=== PATIENT | female | born 1945 | race Caucasian/White ===

== ENCOUNTER 2017-12-02 06:03 | Inpatient (IN) | payer MEDICARE, BC ==
[~2017-12-02] VITALS: Ht 160 cm; Wt 59.9 kg
--- NOTE | ~2017-12-02 | PROC ---
[address] [address] PROCEDURE REPORT Name: ERA GARCIA Room: [address] IN .R.#: [id number] Admission: 12/02/17 Attend Phys: Janak Landeros Discharge: Date of : 43 Report #: [id number] THIS REPORT FOR: //name// For GI report, please see the Provation report in Peceptive 7 content. By: [facility] Records Staff BOO /PATRICK
[~2017-12-02 06:03] MED LIST: BENTYL 10 MG CA10 MG PO; CALCIUM 600 +1 EAC1 PO; EVISTA; GRALISE600 MG; LIDODERM 5%1 PATCH; ZESTORETIC 10-1 EACH PO
[2017-12-02 06:10] VITALS: BP 129/72
[2017-12-02] MEDS ORDERED: KEFLEX500 M1 PO (06:18)
[2017-12-02] MEDS ORDERED: FLEXERIL PO (06:19)
[2017-12-02] MEDS ORDERED: HYDROCODONE-AP1 EAC6 PO (06:19)
[2017-12-02] MEDS ORDERED: MOBIC7.5 MG PO (06:20)
[2017-12-02] MEDS ORDERED: FISH OIL 1,001000 M2 PO (06:20)
[2017-12-02] MEDS ORDERED: NEURONTIN600 MG PO (06:20)
[2017-12-02 07:11] LABS: ABSOLUTE EOSINOPHILS 0.1 thou/uL (0.0-0.7); ABSOLUTE LYMPHOCYTES 1.2 thou/uL (0.8-5.3); BASOPHILS 0.3 %; EOSINOPHILS 0.5 %; HEMATOCRIT 31.5 % (37.0-47.0); HEMOGLOBIN 10.7 gm/dL (12.0-15.0); MCH 30.8 pg (26.0-34.0); MCV 90.6 fL (80.0-100.0); MPV 6.8 fl. (7.2-11.1); NUCLEATED RBCS 0 /100WBC; PLATELET COUNT* 254 thou/uL (150-400); POLYS 77.2 %; RBC 3.48 mil/uL (4.20-5.00); RDW-CV 12.8 % (10.5-14.5); WBC 10.4 thou/uL (4.0-11.0)
[2017-12-02 07:29] LABS: URINE BILIRUBIN NEGATIVE (Negative); URINE BLOOD NEGATIVE (Negative); URINE CLARITY CLEAR; URINE COLOR YELLOW; URINE GLUCOSE-RANDOM NEGATIVE (Negative); URINE KETONES NEGATIVE (Negative); URINE LEUKOCYTES-REFLEX TRACE (Negative); URINE NITRITE-REFLEX NEGATIVE (Negative); URINE PROTEIN TRACE (Negative); URINE SPECIFIC GRAVITY 1.015 (1.005-1.030); URINE UROBILINOGEN 0.2 E.U./dl (0.2-1.0)
[2017-12-02 07:30] LABS: ANION GAP 10 mmol/L (7-16); BUN 28 mg/dL (7-18); CALCIUM 9.1 mg/dL (8.5-10.1); CHLORIDE 99 mmol/L (98-107); CO2 27 mmol/L (21-32); CREATININE 1.1 mg/dL (0.6-1.3); GLUCOSE 96 mg/dL (70-99); POTASSIUM 3.9 mmol/L (3.5-5.1); SODIUM 136 mmol/L (136-145)
[2017-12-02 07:32] LABS: APTT 32.9 Seconds (25.0-31.3); INR 1.1; PROTIME 10.9 Seconds (9.20-11.50)
[2017-12-02 07:37] LABS: ALKALINE PHOSPHATASE 89 U/L (46-116); LIPASE 107 U/L (73-393); SGOT 16 U/L (15-37); SGPT 13 U/L (30-65); TOTAL BILIRUBIN 0.4 mg/dL (<0.1-1.0); TROPONIN-I LEVEL <0.06 ng/mL (<0.06)
[2017-12-02 07:55] LABS: HYALINE CASTS >10 Many /LPF (None Seen); MUCUS 4-6 Moderate strn/LPF (None Seen); SQUAMOUS >10 Many /LPF (0-3)
[2017-12-02 07:56] LABS: BACTERIA-REFLEX 1-9 Few /HPF (None Seen); CRYSTALS None Seen /LPF (None Seen); URINE RBC 0-2 Rare /HPF (0-2); URINE WBC-REFLEX 0-5 Rare /HPF (0-5)
[2017-12-02 10:00] VITALS: BP 108/49
[2017-12-02 10:28] VITALS: BP 136/71
--- NOTE | 2017-12-02 12:14 | EKG ---
[place] [address] ELECTROCARDIOGRAM REPORT Name: ERA GARCIA Room: [address] ADM IN [facility].#: [id number] Admission: 12/02/17 Attend Phys: Janak Landeros Discharge: Date of : 43 Report #: [id number] THIS REPORT FOR: //name// [facility] ED Test Date: 2017-12-02 Test Time: 07:09:21 Pat Name: ERA GARCIA Department: Room: 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1945 Requested By: Milan Fox Order Number: [id number] MD: Mango Proctor Measurements Intervals [place] Rate: 96 P: 0 OR: 133 QRS: 52 QRSD: 84 T: 5 QT: 344 QTc: 435 Interpretive Statements Sinus rhythm Probable left atrial enlargement Borderline T abnormalities, inferior leads Baseline wander in lead(s) V1 No previous ECG available for comparison Electronically Signed On 12-02-2017 12:13:49 COACH by Mango Proctor [email or web address] <ELECTRONICALLY SIGNED> By: Mango Proctor MD, [facility] 12/02/17 1213 0709 0709 Mango Proctor MD, [facility] /EPI
[2017-12-02 15:49] VITALS: BP 133/71
--- NOTE | 2017-12-02 16:51 | NUR ---
ASSUMED CARE OF PATIENT AFTER ADMISSION FROM THE ED. ADMISSION ASSESSMENTS COMPLETED AND CHARTED. ALERT AND ORIENTED X4. FLUIDS RUNNING ORDERED, ANTIBIOTICS INFUSED PER ORDERS. NO COMPLAINTS OF PAIN OR NAUSEA. PATIENT IS RESTING COMFROTABLY IN BED AT THIS TIME. AWAITING CONSULT WITH GI FOR MORE INFORMATION ON TRATMENT PLAN. HOURLY ROUNDS HAVE BEEN MAINTAINED. CALL LIGHT IS WITHIN REACH. NURSING WILL CONTINUE TO MONITOR.
[2017-12-02 21:30] VITALS: BP 120/64
[2017-12-03 04:41] VITALS: BP 120/64
[2017-12-03 05:15] LABS: ABSOLUTE EOSINOPHILS 0.1 thou/uL (0.0-0.7); ABSOLUTE LYMPHOCYTES 1.3 thou/uL (0.8-5.3); ABSOLUTE MONOCYTES 0.8 thou/uL (0.0-1.2); ABSOLUTE NEUTROPHILS 5.2 thou/uL (1.6-8.1); BASOPHILS 0.3 %; EOSINOPHILS 1.5 %; HEMATOCRIT 29.8 % (37.0-47.0); HEMOGLOBIN 10.3 gm/dL (12.0-15.0); LYMPHOCYTES 16.9 %; MCH 31.2 pg (26.0-34.0); MCHC 34.5 g/dL (28.0-37.0); MCV 90.6 fL (80.0-100.0); MPV 7.5 fl. (7.2-11.1); NUCLEATED RBCS 0 /100WBC; PLATELET COUNT* 244 thou/uL (150-400); POLYS 70.3 %; RBC 3.29 mil/uL (4.20-5.00); RDW-CV 12.7 % (10.5-14.5); WBC 7.4 thou/uL (4.0-11.0)
[2017-12-03 05:26] LABS: CALCIUM 8.8 mg/dL (8.5-10.1); MAGNESIUM 2.4 mg/dL (1.8-2.4); PHOSPHORUS* 2.8 mg/dL (2.5-4.9); POTASSIUM 4.5 mmol/L (3.5-5.1)
--- NOTE | 2017-12-03 05:50 | NUR ---
ALERT AND ORIENTED X4. UP AD TREVOR IN ROOM. DENIES NEED FOR PAIN OR NAUSEA MEDICATION. NPO AT THIS TIME FOR COLONOSCOPY TODAY. IVF INFUSING WITHOUT DIFFICULTY. CALL LIGHT WITHIN REACH.
[2017-12-03 08:28] VITALS: BP 120/67
--- NOTE | 2017-12-03 11:51 | EKG ---
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1945 Requested By: Blas Vora Order Number: [id number] Reading MD: Mango Proctor Measurements Intervals [place] Rate: 89 P: 36 AR: 141 QRS: 49 QRSD: 92 T: 28 QT: 336 QTc: 409 Interpretive Statements Sinus rhythm Probable left atrial enlargement Low voltage, precordial leads Nonspecific T abnormalities, anterior leads Compared to ECG 12/02/2017 07:09:21 Low QRS voltage now present T-wave abnormality still present Electronically Signed On 12-03-2017 11:51:03 BATCH FREEZER OPERATOR by Mango Proctor [email or web address] <ELECTRONICALLY SIGNED> By: Mango Proctor MD, [facility] 12/03/17 1151 0830 0830 Mango Proctor MD, [facility] /EPI
[2017-12-03 16:17] VITALS: BP 120/62
--- NOTE | 2017-12-03 17:18 | NUR ---
ASSUMED CARE OF PATIENT AFTER MORNING REPORT. ALERT AND OREINTED X4. ASSESSMENT COMPLETED AND CHARTED. VSS ON ROOM AIR. NO COMPLAINTS OF PAIN OR NAUSEA. NO BOWEL MOVEMENTS DESPITE BOWEL PREP LAST NIGHT AND THIS MORNING. COLONOSCOPY DONE AND CLEAR LIQUID DIET HAS BEEN ODERED. MAGNESIUM CITRATE AND DULCOLAX ORDERED TO BE GIVEN THIS AFTERNOON AND EVENING. HOURLY ROUNDS HAVE BEEN MAINTAINED. CALL LIHT IS WITHIN REACH. NURSING WILL CONTINUE TO MONITOR.
[2017-12-03 21:00] VITALS: BP 112/73
[2017-12-04 04:00] VITALS: BP 124/66
[2017-12-04 04:39] LABS: ABSOLUTE EOSINOPHILS 0.1 thou/uL (0.0-0.7); ABSOLUTE LYMPHOCYTES 1.2 thou/uL (0.8-5.3); ABSOLUTE MONOCYTES 0.7 thou/uL (0.0-1.2); ABSOLUTE NEUTROPHILS 5.3 thou/uL (1.6-8.1); BASOPHILS 0.5 %; EOSINOPHILS 1.1 %; HEMATOCRIT 29.4 % (37.0-47.0); HEMOGLOBIN 10.2 gm/dL (12.0-15.0); LYMPHOCYTES 16.9 %; MCH 31.1 pg (26.0-34.0); MCHC 34.7 g/dL (28.0-37.0); MCV 89.5 fL (80.0-100.0); MONOCYTES 9.3 %; MPV 7.4 fl. (7.2-11.1); NUCLEATED RBCS 0 /100WBC; PLATELET COUNT* 270 thou/uL (150-400); POLYS 72.2 %; RBC 3.29 mil/uL (4.20-5.00); RDW-CV 12.6 % (10.5-14.5); WBC 7.3 thou/uL (4.0-11.0)
[2017-12-04 05:17] LABS: CALCIUM 8.6 mg/dL (8.5-10.1); CREATININE 0.9 mg/dL (0.6-1.3); POTASSIUM 3.2 mmol/L (3.5-5.1)
--- NOTE | 2017-12-04 07:01 | NUR ---
UP AD TREVOR TO BATHROOM. ALERT AND ORIENTED X4. REMAINS ON CLEAR LIQUID DIET. NO BOWEL MOVENENT NOTED LAST NIGHT. IVF INFUSING WITHOUT DIFFICULTY. NO C/O N/V. PAIN MEDICATION GIVEN X1 AND HELPFUL. CALL LIGHT WITHIN REACH.
[2017-12-04 08:00] VITALS: BP 127/69
[2017-12-04] MEDS ORDERED: CIPRO500 MG PO (11:16)
[2017-12-04] MEDS ORDERED: FLAGYL500 MG PO (11:16)
[2017-12-04 16:00] VITALS: BP 125/70
--- NOTE | 2017-12-04 17:02 | NUR ---
ALERT AND ORIENTED X4. UP AD TREVOR IN ROOM. IV IS PATENT AND INFUSING. PAIN BEING MANAGED WITH PO PAIN MEDICATION. DENIES NAUSEA. TOLERATING CLEAR LIQUID DIET. VSS ON ROOM AIR. HOURLY ROUNDS HAVE BEEN MAINTAINED THROUGHOUT SHIFT. CALL LIGHT IS WITHIN REACH. NURSING WILL CONTINUE TO MONITOR.
--- NOTE | 2017-12-04 17:32 | NUR ---
PT.ALERT AND ORIENTED. STATED SHE LIVES WITH HER . HE CAN ASSIST HER IF NEEDED. SHE SAID SHE IS NORMALLY INDEPENDENT AND FAIRLY ACTIVE. SHE DRIVES,COOKS,SHOPS,CLEANS. DOES NOT USE DME AND HAS NEVER HAD HOME HEALTH. SHE DOES NOT FEEL SHE WILL HAVE ANY DISCHARGE NEEDS.
[2017-12-04 20:00] VITALS: BP 135/75
--- NOTE | 2017-12-05 07:59 | NUR ---
PT ALERT AND ORIENTED X4, PT DOES COMPLAIN OF ABD PAIN CONTROLLED WITH PO PAIN MED, PT DENIES N/V THIS SHIFT, PT DOES HAVE MOD AMOUNT SIZED LIQUID STOOL THIS MORNING, CONTINUES UP AD TREVOR, IV FLUIDS INFUSING, REPORTED TO DAMEON CASTILLO AT 0700
[2017-12-05 08:15] VITALS: BP 112/68
[2017-12-05 10:19] LABS: ABSOLUTE BASOPHILS 0.1 thou/uL (0.0-0.2); ABSOLUTE EOSINOPHILS 0.1 thou/uL (0.0-0.7); ABSOLUTE LYMPHOCYTES 1.6 thou/uL (0.8-5.3); ABSOLUTE MONOCYTES 0.8 thou/uL (0.0-1.2); ABSOLUTE NEUTROPHILS 7.9 thou/uL (1.6-8.1); BASOPHILS 0.6 %; EOSINOPHILS 1.3 %; HEMATOCRIT 31.3 % (37.0-47.0); HEMOGLOBIN 10.5 gm/dL (12.0-15.0); LYMPHOCYTES 15.4 %; MCH 30.6 pg (26.0-34.0); MCHC 33.7 g/dL (28.0-37.0); MCV 90.8 fL (80.0-100.0); MONOCYTES 7.6 %; MPV 6.8 fl. (7.2-11.1); NUCLEATED RBCS 0 /100WBC; PLATELET COUNT* 296 thou/uL (150-400); POLYS 75.1 %; RBC 3.44 mil/uL (4.20-5.00); RDW-CV 12.6 % (10.5-14.5); WBC 10.5 thou/uL (4.0-11.0)
[2017-12-05 10:50] LABS: ALBUMIN 2.8 g/dL (3.4-5.0); CALCIUM 8.6 mg/dL (8.5-10.1); MAGNESIUM 2.3 mg/dL (1.8-2.4); POTASSIUM 3.1 mmol/L (3.5-5.1); TOTAL BILIRUBIN 0.3 mg/dL (<0.1-1.0); TOTAL PROTEIN 7.5 g/dL (6.4-8.2)
--- NOTE | 2017-12-05 16:22 | S ---
[place] [address] SURGICAL PATH RPT PROCEDURE Name: JOSEGIRARD Doug Room: [address] IN M.R.#: [id number] Admission: 12/02/17 Date of : 43 Discharge: Report #: [id number] Path Case #: [id number] PATHOLOGY REPORT COLLECTION DATE: 12/03/2017 RECEIVED DATE: 12/04/2017 SUBMITTING PHYS: Dr. Blas Vora OTHER PHYS: Dr. Darren Sherwood SPECIMEN(S) RECEIVED: A.Biopsy splenic flexure ulceration * * * * * * * * * * * * FINAL DIAGNOSIS: Biopsy splenic flexure ulceration: - Chronic active colitis with evidence of ulceration, negative for granulomas, viral inclusions, and dysplasia. (see comment) COMMENT: The biopsy reveals multiple fragments of benign colonic mucosa and several show evidence of active inflammation with abundant neutrophils noted in the lamina propria but with fairly minimal cryptitis and no crypt abscesses. There is noted to be an abundance of eosinophils in the inflammatory component, and one of the fragments shows crypt distortion where several basal lymphoid aggregates are noted. There is no definite basal lymphoplasmacytosis and no definite ischemic features are seen. The clinical suspicion of ischemic colitis is noted upon discussion with Dr. Vora on afternoon of 12/05/2017 and although this cannot be excluded, the histologic findings also raise a question of Crohn's disease which is favored. Discussed with Dr. Sherwood at approximately 15:15 on 12/05/2017. (JA:mgr; 12/05/2017) PATHOLOGIST: Ketan Bonilla M.D. REPORT ELECTRONICALLY SIGNED BY: Ketan Bonilla M.D. DATE/TIME: 12/05/2017 16:22 * * * * * * * * * * * * GROSS PATHOLOGY: The specimen is received in formalin, labeled "Andrew Buck, JACKLYN splenic flexure ulceration," and consists of 2 mucosal biopsies measuring 0.5 x 0.3 x 0.1 cm and 0.4 x 0.2 x 0.1 cm. They are entirely submitted in cassette A1. (SDY; 12/04/2017) [place] [address] SURGICAL PATH RPT PROCEDURE Name: ANDREW BUCK Room: [address] IN R.#: [id number] Admission: 12/02/17 Date of : 43 Discharge: Report #: [id number] Path Case #: [id number] CLINICAL HISTORY: Splenic flexure ulceration INITIAL CPT CODE(S): A; 63123 Professional services performed by [facility] at [address] [address] Technical services performed by [facility] at [address] [place] [address], [facility] [address], [place] [address]. [facility] [address] [place] [address] PHONE: [phone] DIRECTOR: Junior Machado M.D. * * * END OF REPORT * * *
[2017-12-05 17:09] VITALS: BP 115/86
--- NOTE | 2017-12-05 17:10 | NUR ---
ALERT AND ORIENTED X4. UP AD TREVOR IN ROOM. IV IS PATENT AND SALINE LOCKED. CENTRAL LINE WAS INSERTED TODAY AND IS PATENT AND INFUSING. DENIES PAIN OR NAUSEA. VSS ON ROOM AIR. HOURLY ROUNDS HAVE BEEN MAINTAINED THROUGHOUT SHIFT. CALL LIGHT IS WITHIN REACH. NURSING WILL CONTINUE TO MONITOR.
[2017-12-06 01:21] VITALS: BP 109/54
[2017-12-06 02:13] VITALS: BP 120/64
[2017-12-06 05:00] VITALS: BP 120/61
[2017-12-06 06:31] LABS: ALBUMIN 2.3 g/dL (3.4-5.0); CALCIUM 8.5 mg/dL (8.5-10.1); CREATININE 0.8 mg/dL (0.6-1.3); PHOSPHORUS* 2.7 mg/dL (2.5-4.9); POTASSIUM 3.9 mmol/L (3.5-5.1); TOTAL BILIRUBIN 0.2 mg/dL (<0.1-1.0); TOTAL PROTEIN 6.2 g/dL (6.4-8.2)
--- NOTE | 2017-12-06 08:24 | NUR ---
PATIENT HAS SLEPT WELL THROUGHOUT THE NIGHT WITHOUT ANY ISSUES. NO C/O PAIN AND NO C/O OF NAUSEA. PATIENT HAS REMAINED NPO SINCE MIDNIGHT. VSS ON RA. CENTRAL LINE TO LEFT SUBCLAVIAN-TRIPLE LUMEN- D5 1/2 NS @ 80ML/HR AND TPN @ 40ML/HR. IV IN RIGHT FOREARM-SL. NO BM NOTED. SURGERY HERE THIS AM TO TAKE PATIENT FOR PROCEDURE. WILL CONTINUE WITH PLAN OF CARE AND NURSING TO MONITOR.
--- NOTE | 2017-12-06 08:48 | NUR ---
RECEIVED REPORT FROM TERRY RN. PATIENT CURRENTLY IN SURGERY.
[2017-12-06 13:15] VITALS: BP 119/63
--- NOTE | 2017-12-06 13:15 | NUR ---
PATIENT RETURNED FROM PACU AT THIS TIME S/P EXP LAPAROTOMY, COLON RESECTION, AND COLOSTOMY. ASSESSMENT CHARTED. PATIENT STATING PAIN IS IMPROVED AFTER HAVING TAP BLOCK IN PACU. TPN CURRENTLY INFUSING TO TRIPLE LUMEN CENTRAL LINE. IV FLUIDS RESUMED. ROLLINS PATENT. ABDOMINAL DRESSING CLEAN, DRY AND INTACT. COLOSTOMY IN PLACE TO LEFT SIDE OF ABDOMEN. PATIENT'S VITALS CHARTED. PATIENT'S SCDS IN PLACE. PATIENT'S FAMILY AT BEDSIDE. WILL CONTINUE WITH PLAN OF CARE.
[2017-12-06 16:46] VITALS: BP 127/68
--- NOTE | 2017-12-06 18:42 | NUR ---
PATIENT HAS BEEN A/O X 4 SINCE RETURNING FROM SURGERY. TPN AND IV FLUIDS CONTINUE TO INFUSE. DRESSING TO ABDOMEN CLEAN, DRY AND INTACT. COLOSTOMY INTACT TO LEFT SIDE OF ABDOMEN. ROLLINS PATENT AND DRAINING. REPOSITIONED FOR COMFORT AND SKIN PREVENTION. ON CONTINOUS PULSE OX WITH SATS IN THE 90s. MEDICATED FOR ABDOMINAL PAIN X 1 WITH PARTIAL RELIEF. CALL PLACED TO PHYSICIAN REGARDING PAIN MEDS. AT BEDSIDE. CALL LIGHT WITHIN REACH. FALL PRECAUTIONS IN PLACE. WILL CONTINUE WITH PLAN OF CARE.
[2017-12-06 20:45] VITALS: BP 107/50
[2017-12-07 00:51] VITALS: BP 120/68
[2017-12-07 04:35] VITALS: BP 118/43
--- NOTE | 2017-12-07 06:59 | NUR ---
PATIENT HAS SLEPT FAIRLY WELL THROUGHOUT THE NIGHT BUT HAS HAD C/O OF ABDOMINAL PAIN FROM SURGERY. PAIN MEDICATIONS GIVEN AND CHARTED. NO NAUSEA OR VOMITING. ROLLINS TO DEPENDENT DRAINAGE WITH YELLOW URINE OUTPUT. VSS ON RA, ALTHOUGH PULSE IS SLIGHTLY TACHYCARDIC. LEFT TRIPLE LUMEN CENTRAL LINE- D5 1/2 NS @ 80ML/HR AND TPN @ 80ML/HR. LABS DRAWN THIS AM VIA CENTRAL LINE. DRESSING TO ABDOMINAL INCISION IS C/D/I, AND STOMA IS RED AND LOOKS APPROPRIATE. COLOSTOMY BAG IN PLACE. NO STOOL NOTED AT THIS TIME. PATIENT INSTRUCTED TO USE CALL LIGHT WHEN NEEDING ASSISTANCE. HOURLY ROUNDS MADE. WILL CONTINUE WITH PLAN OF CARE AND NURSING TO MONITOR.
[2017-12-07 07:02] LABS: CALCIUM 8.1 mg/dL (8.5-10.1); MAGNESIUM 2.1 mg/dL (1.8-2.4); PHOSPHORUS* 3.3 mg/dL (2.5-4.9)
[2017-12-07 08:15] VITALS: BP 111/56
[2017-12-07 16:02] VITALS: BP 115/65
--- NOTE | 2017-12-07 19:46 | NUR ---
ALERT AND ORIENTED X4. UP WITH ASSISTANCE X1 WITH GAIT BELT. PAIN BEING MANAGED WITH PO PAIN MEDICATION. DENIES NAUSEA. CENTRAL LINE IS PATENT AND INFUSING TPN AT THIS TIME. TOLERATING FULL LIQUID DIET. ATTENDED OT/PT THIS AM. VSS ON ROOM AIR. HOURLY ROUNDS HAVE BEEN MAINTAINED THROUGHOUT SHIFT. CALL LIGHT IS WITHIN REACH. NURSING WILL CONTINUE TO MONITOR.
[2017-12-07 20:10] VITALS: BP 110/56
[2017-12-08] VITALS: BP 96/45
--- NOTE | 2017-12-08 00:20 | NUR ---
Ambulated to the bathroom for first void post cook removal. Missed collection hat but was able to urinate. Continue to monitor.
[2017-12-08 04:00] VITALS: BP 97/47
--- NOTE | 2017-12-08 04:57 | NUR ---
PATIENT HAS REMAINED ALERT AND ORIENTED X 4 THROUGHOUT THE SHIFT AND RESTING QUIETLY ON HOURLY ROUNDS. ASSISTED WITH REPOSTIONING Q2H. UP TO BR TO VOID MIDNIGHT. MIN/CGA FOR AMBULATION SAFETY. DRESSING TO ABDOMEN CLEAN AND DRY. COLOSTOMY PRESENT LLQ WITH SMALL AMOUNT RED DRAINAGE. MILD NAUSEA HS. RESOLVED WITH REPOSITIONING AND ZOFRAN. NO EMESIS. VITAL SIGNS STABLE WITH LOW GRADE FEVER. DEEP BREATHING AND COUGH Q2H ENCOURAGED. MEDICATED FOR PAIN TIMES ONE AT SHIFT CHANGE. CONTINUE TO MONITOR.
[2017-12-08 06:48] LABS: HEMATOCRIT 22.5 % (37.0-47.0); MCH 31.1 pg (26.0-34.0); MCHC 33.8 g/dL (28.0-37.0); MCV 92.1 fL (80.0-100.0); MPV 7.1 fl. (7.2-11.1); RBC 2.44 mil/uL (4.20-5.00); RDW-CV 12.9 % (10.5-14.5); WBC 10.7 thou/uL (4.0-11.0)
[2017-12-08 06:49] LABS: HEMOGLOBIN 7.6 gm/dL (12.0-15.0)
[2017-12-08 07:04] LABS: CREATININE 0.9 mg/dL (0.6-1.3); MAGNESIUM 1.9 mg/dL (1.8-2.4); POTASSIUM 4.8 mmol/L (3.5-5.1)
[2017-12-08 08:03] VITALS: BP 105/54
[2017-12-08 15:08] VITALS: BP 105/54
--- NOTE | 2017-12-08 15:10 | NUR ---
PT.UP IN CHAIR. SAID SHE FEELS PRETTY GOOD SINCE HER SURGERY. HAS BEEN WALKING IN THE HALLS WITH THERAPY. EXPLAINED MARCI AYALA RN WILL BE COMING TO SEE HER REGARDING COLOSTOMY TEACHING. DISCUSSED HOME HEALTH. SHE CHOSE [facility] HER HOME HEALTH AGENCY. SPOKE WITH [facility] AND FAXED HER REFERRAL INFORMATION. DISCHARGE DATE UNKNOWN. FINAL DISCHARGE ORDERS WILL NEED TO BE FAXED TO THE MEDICAL [facility]ENTERS AND THE [facility]ENT[facility] NOTIFIED OF DISCHARGE. THE [facility]-PHONE #[phone]/ [phone].
--- NOTE | 2017-12-08 15:59 | NUR ---
WOUND CARE NOTE: SPOKE WITH CORE OVEN TENDER THIS AM, PLANS TO BE HERE THIS AFTERNOON.
[2017-12-08 16:00] VITALS: BP 134/60
--- NOTE | 2017-12-08 17:14 | NUR ---
OSTOMY NURSE- PATIENT IS 2 DAYS POST-OP FOLLOWING EXPLORATORY LAPAROTOMY WITH LEFT HEMICOLECTOMY, TAKEDOWN SPLENIC FLEXURE, COLOSTOMY & MUCOUS FISTULA PER DR WIN ON 12/06/17 FOR COLONIC OBSTRUCTION AT LEVEL OF SPLENIC FLEXURE. DR WIN IN TO SEE PATIENT JUST AFTER NEW POUCH APPLIED, ADVISED PATIENT AND HER AND SISTER, LAURO, AT BEDSIDE THAT THE PATHOLOGY WAS CONSISTENT WITH CROHN'S DISEASE, SO SHE WILL NEED TO F/U WITH DR BLANK REGARDING TREATING CROHN'S, AND TAKEDOWN WILL BE DEFERRED TO CROHN'S BEING CONTROLLED. ABDOMEN NON-DISTENDED AND SOFT. PATIENT TOLERATING SOFT DIET WELL, BUT MINIMAL APPETITE. SMALL MIDLINE ABDOMINAL INCISION WELL APPROXIMATED WITH RYAN, NO ERYTHEMA OR DRAINAGE. COLOSTOMY STOMA/MUCOUS FISTULA AT SAME SITE ON LEFT ABDOMEN, WITH STOMAS APPROXIMATELY 1 3/4 INCHES, BOTH PROTRUDE WELL, BEEFY RED & MOIST. MUCOCUTANEOUS INCISION WELL APPROXIMATED, PERISTOMAL SKIN INTACT. DRAINING SMALL AMOUNTS OF LOOSE BROWN STOOL. INSTRUCTED PATIENT, AND SISTER (NURSE) ON POUCH EMPTYING & POUCH CHANGE. BRIEFLY REVIEWED DIETARY IMPLICATIONS. ENROLLED IN [place] PROGRAM, HAS COLOSTOMY TEACHING PACKET AND WILL HAVE HOME HEALTH AT DISCHARGE. SHE ALSO HAS INITIAL HOME SUPPLIES. ANTICIPATE DISCHARGE IN NEXT COUPLE OF DAYS.
--- NOTE | 2017-12-08 17:30 | NUR ---
ASSUMED CARE OF PATIENT AFTER REPORT THIS MORNING. PATIENT AWAKE, ALERT, AND ORIENTED APPROPRIATELY. PHYSICAL ASSESSMENT COMPLETED AND CHARTED. NO COMPLAINTS OF PAIN THIS SHIFT. GIVEN SCHEDULED MEDICATIONS, SEE EMAR FOR DOCUMENTATION. VITAL SIGNS STABLE. OXYGEN SATURATION WITHIN NORMAL LIMITS ON ROOM AIR. PATIENT TRANSFERS AND AMBULATES WITH ASSISTANCE FROM STAFF. USES CALL LIGHT APPROPRIATELY. OSTOMY NURSE VISITED WITH PATIENT THIS AFTERNOON REGARDING COLOSTOMY. PATIENT DENIES NEEDS AT THIS TIME. CALL LIGHT WITHIN REACH. NURSING WILL CONTINUE TO MONITOR.
--- NOTE | 2017-12-08 17:35 | EKG ---
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1945 Requested By: Dong Damon Order Number: [id number] Eugenio MD: Kevin Love Measurements Intervals [place] Rate: 103 P: 37 ND: 125 QRS: 47 QRSD: 90 T: 32 QT: 301 QTc: 394 Interpretive Statements Sinus tachycardia Low voltage, precordial leads Nonspecific T abnormalities, anterior leads Compared to ECG 12/03/2017 08:30:50 Sinus rhythm no longer present T-wave abnormality still present Electronically Signed On 12-08-2017 17:35:21 WOODWORKING BENCH CARPENTER by Kevin Love [email or web address] <ELECTRONICALLY SIGNED> By: Keivn Love MD, [facility] 12/08/17 1735 1613 1613 Kevin Love MD, [facility] /EPI
[2017-12-08 20:00] VITALS: BP 107/53
[2017-12-09 02:47] VITALS: BP 92/50
[2017-12-09 03:51] VITALS: BP 110/60
--- NOTE | 2017-12-09 05:01 | NUR ---
PATIENT RESTING QUIETLY THIS AM ON HOURLY ROUNDS. VITALS STABLE ON ROOM AIR. DENIED NEED FOR PAIN MEDICATION. DRESSING TO ABDOMEN CLEAN, DRY AND INTACT. COLOSTOMY IN PLACE, NO OUTPUT THIS SHIFT. CONTINUE TO MONITOR.
[2017-12-09 07:28] LABS: HEMATOCRIT 22.1 % (37.0-47.0); HEMOGLOBIN 7.4 gm/dL (12.0-15.0); MCH 30.6 pg (26.0-34.0); MCHC 33.3 g/dL (28.0-37.0); MCV 91.8 fL (80.0-100.0); MPV 7.1 fl. (7.2-11.1); RBC 2.41 mil/uL (4.20-5.00); RDW-CV 12.8 % (10.5-14.5); WBC 7.4 thou/uL (4.0-11.0)
[2017-12-09 07:30] VITALS: BP 113/54
[2017-12-09 07:43] LABS: ALBUMIN 1.9 g/dL (3.4-5.0); CALCIUM 8.4 mg/dL (8.5-10.1); MAGNESIUM 1.8 mg/dL (1.8-2.4); POTASSIUM 4.6 mmol/L (3.5-5.1); TOTAL BILIRUBIN 0.2 mg/dL (<0.1-1.0); TOTAL PROTEIN 5.6 g/dL (6.4-8.2)
--- NOTE | 2017-12-09 12:05 | NUR ---
Initial referral packet on the front of Pt's chart to [place] [facility] [place] orders for [place] will need to be included in the referral packet prior to faxing it to [facility]. f:[phone]
[2017-12-09 16:00] VITALS: BP 113/54
--- NOTE | 2017-12-09 18:46 | NUR ---
PATIENT REMAINED ALERT AND ORIENTED X'S 4. VITAL SIGNS AND SPO2 STABLE. IV CLEAN, DRY, INTACT, FLUSHING SALINE. TOLERATED DIET, NO NAUSEA AND VOMITING. VOIDED WITHOUT ISSUE, COLOSTOMY IN PLACE. SCD'S, YELLOW SOCKS IN PLACE. COMPLETED HOURLY ROUNDING. CALL LIGHT WITHIN REACH. WILL CONTINUE TO MONITOR.
[2017-12-09 20:30] VITALS: BP 122/60
[2017-12-10 00:41] VITALS: BP 112/61
[2017-12-10 04:43] LABS: HEMATOCRIT 23.9 % (37.0-47.0); HEMOGLOBIN 8.3 gm/dL (12.0-15.0); MCH 31.3 pg (26.0-34.0); MCHC 34.6 g/dL (28.0-37.0); MCV 90.5 fL (80.0-100.0); RBC 2.64 mil/uL (4.20-5.00); RDW-CV 12.4 % (10.5-14.5); WBC 6.8 thou/uL (4.0-11.0)
[2017-12-10 05:10] LABS: CREATININE 0.9 mg/dL (0.6-1.3); POTASSIUM 4.4 mmol/L (3.5-5.1)
[2017-12-10 08:05] VITALS: BP 114/60
--- NOTE | 2017-12-10 08:22 | NUR ---
Alert and oriented x 4. Up with stand by assist to the bathroom. Midline incision dry and intact with ABD dressing. Colostomy to LLQ and hasn't had very much output. Vitals stable. She has slept well.
[2017-12-10 16:00] VITALS: BP 119/63
--- NOTE | 2017-12-10 17:04 | NUR ---
ASSUMED CARTE OF PATIENT AFTER MONRING REPORT. ALERT AND OREINTED X4. ASSESSMENT COMPLETED AND CHARTED. VSS ON ROOM AIR. PATIENT HAS HAD NO COMPLANTS OF PAIN OR NAUSEA THIS SHIFT. PATIENT WALKED THE UNTI WITH HER A FEW TIMES THROUGHOUT SHIFT. RESTING COMFORTABLY IN BED AT THIS TIME. HOURLY ROUNDS HAVE BEEN MAINTAINED. CALL LIGHT IS WITHIN REACH. NURSING WILL CONTINUE TO MONITOR.
[2017-12-10 21:00] VITALS: BP 123/59
--- NOTE | 2017-12-11 05:25 | NUR ---
Alert and oriented x 4. Colostomy is working well,she has good bowel sounds. She has no nausea. Dressing to midline abdominal incision dry and intact. She had pain med x 1. Vitals are stable. Up independently to the bathroom. She has slept well.
[2017-12-11 05:30] LABS: HEMATOCRIT 25.4 % (37.0-47.0); HEMOGLOBIN 8.6 gm/dL (12.0-15.0); MCH 30.8 pg (26.0-34.0); MCHC 33.8 g/dL (28.0-37.0); MPV 6.7 fl. (7.2-11.1); RBC 2.79 mil/uL (4.20-5.00); RDW-CV 12.4 % (10.5-14.5); WBC 7.6 thou/uL (4.0-11.0)
[2017-12-11 06:02] LABS: CALCIUM 9.1 mg/dL (8.5-10.1); MAGNESIUM 1.9 mg/dL (1.8-2.4); POTASSIUM 4.4 mmol/L (3.5-5.1)
[2017-12-11 08:00] VITALS: BP 124/69
--- NOTE | 2017-12-11 11:26 | NUR ---
[facility]DISCHARGING HOME TODAY. FAXED DISCHARGE ORDERS TO HER. SHE SAID THEY WOULD PROVIDE ADDITIONAL OSTOMY SUPPLIES IF HER MAIL ORDER DOESN'T ARRIVE BEFORE SHE NEEDS THEM. HOME HEALTH WILL SEE PT.TOMORROW.
--- NOTE | 2017-12-11 12:12 | NUR ---
PT RETURNED DEMONSTRATION OF EMPTYING COLOSTOMY. PT STATES SHE IS COMFORTABLE WITH CHANGING BAG. PT HAS COLOSTOMY SUPPLIES IN ROOM AND RESOURCES FOR CARE AND HOW TO ORDER MORE SUPPLIES
[2017-12-11] MEDS ORDERED: TYLENOL325 MG PO (12:51)
[2017-12-11 12:52] VITALS: BP 105/54
[2017-12-11 13:04] VITALS: BP 105/54
[2017-12-11] MEDS ORDERED: MIRALAX17 GM PO (13:06)
--- NOTE | 2017-12-12 14:31 | S ---
[place] [address] SURGICAL PATH RPT PROCEDURE Name: JOSEGIRARD F Room: [address] IN .R.#: [id number] Admission: 12/02/17 Date of : 43 Discharge: 12/11/17 Report #: [id number] Path Case #: [id number] PATHOLOGY REPORT COLLECTION DATE: 12/06/2017 RECEIVED DATE: 12/06/2017 SUBMITTING PHYS: Dr. Yan Sherwood OTHER PHYS: Dr. Darren Vora SPECIMEN(S) RECEIVED: A.Splenic flexure suture at distal end * * * * * * * * * * * * FINAL DIAGNOSIS: Splenic flexure: - Segment of benign colon with features most consistent with active Crohn's disease including discontinuous active colitis associated with serpiginous ulcerations, transmural inflammation and perforation with foreign body-type granulomatous response, fistula formation and fibrosis and subtle chronic colitis, negative for granulomas and dysplasia. - Five benign lymph nodes with follicular hyperplasia. See comment. COMMENT: The grossly described "nodular indurated region within the antimesenteric pericolic fatty tissue", also sampled intraoperatively, shows prominent fibrosis and inflammation in association with a fistula. The constellation of findings is thought to best support active Crohn's disease although chronic inflammatory changes, outside of the region of the serpiginous ulcerations are fairly subtle and there is also noted to be an abundance of eosinophils in the inflammatory infiltrate as well as extensive pericolic fibrosis. Consideration should also be given to the possibility of non-steroidal anti-inflammatory use as a possible primary etiology or even as an initiating flare of Crohn's disease. Sections of the proximal and distal surgical margins show normal colonic tissues. Discussed with Dr. Sherwood on afternoon of 12/11/2017. PATHOLOGIST: Ketan Bonilla M.D. REPORT ELECTRONICALLY SIGNED BY: Ketan Bonilla M.D. DATE/TIME: 12/12/2017 14:30 * * * * * * * * * * * * GROSS PATHOLOGY: [place] [address] SURGICAL PATH RPT PROCEDURE Name: ANDREW GARCIA Room: [address] IN M.R.#: [id number] Admission: 12/02/17 Date of : 43 Discharge: 12/11/17 Report #: [id number] Path Case #: [id number] Received fresh from the operating room accompanied by a label marked "Andrew Garcia, splenic flexure-suture at distal end", is a segment of colon. Dr. Sherwood demonstrates this to be the splenic flexure of colon where the mid portion of it, which is very indurated and has a vague, firm nodularity for a span of approximately 4 x 2 cm, is adjacent to the spleen. He demonstrates the spleen to have a very smooth, homogenous white-orr color within the patient. There is a clinical concern for Crohn's disease based on the prior biopsy, however, the induration and nodularity as well as intraoperative findings of the spleen raise a question of a hematopoietic disorder and intraoperative evaluation of, specifically the nodular indurated focus, is requested. The segment measures 26 cm long and generally averages 4 x 2 cm in girth and the central portion, where the nodularity of interest is found, has a girth of 6.5 x 2.5 cm. Mesenteric fat, which appears normal, generally averages 3 cm in length and up to 1 cm in thickness. A black suture is at one end designated as distal and there is no evidence of dilatation of the bowel. The nodular indurated area is not in the mesenteric tissue, but in antimesenteric pericolic fatty tissues and green ink is placed over this region and a cut is made into it where it is noted to have a homogenous firm orr interior and a loan servicing representative section of this region is submitted for frozen studies, with the remainder of that tissue frozen submitted in cassette A1. The bowel is longitudinally opened along the antimesenteric aspect and at both the proximal and distal ends there is normal appearing bowel, however, the central portion of the mucosa has an irregular inflamed to focally serpiginous ulcerated appearance and it has a flattened and inflamed appearance to an area approximately 3 cm away from the distal margin. There is evidence of submucosal black pigment tattooing proximal to the inflamed area. The proximal approximate 8-10 cm length of bowel appears normal. The surgical margin at both ends is closed with linear arrangements of brandon. The segment of bowel is demonstrated to Dr. Sherwood in the operating room and it is then submitted for fixation prior to further examination. (JA:curly; 12/06/2017) The "nodular indurated region within the antimesenteric pericolic fatty tissue" is further sectioned. There appears to be a probable ruptured diverticulum vs. a fistula identified that measures 0.9 cm in length by 0.3 cm in diameter. The surrounding muscularis propria is fibrotic. There are no additional diverticula identified. Sectioning the mesocolon reveals a few lymph node candidates ranging in size from 0.2 cm-0.6 cm in greatest dimension. Edge Stainer lymph node candidates are submitted. Additional loan servicing representative sections of the colonic segment are submitted as follows: A2 distal margin A3 proximal margin A4-A6 sections of "nodular indurated region within the anti-mesenteric pericolic fatty tissue" A7 [place] [address] SURGICAL PATH RPT PROCEDURE Name: ANDREW GARCIA Room: [address]#: [id number] Admission: 12/02/17 Date of : 43 Discharge: 12/11/17 Report #: [id number] Path Case #: [id number] A8 transmural section proximal end A9 whole lymph node candidates (MYRA; 12/07/2017) Additional sections are submitted as follows: A10-A11 transmural sections distal end A12-A13 transmural sections proximal end (MYRA; 12/08/2017) FROZEN SECTION DIAGNOSIS: (Ketan Bonilla M.D.) Frozen diagnosis (splenic flexure): - Pericolic induration/nodule (designated by Dr. Sherwood) shows inflamed fibrotic tissues negative for malignancy. Opened colon segment shows segmental mucosal inflammation typical of Crohn's disease. Testing performed by [facility] at [facility], [address] [place] [address]. (JA:curly; 12/06/2017) CLINICAL HISTORY: Colonic obstruction INITIAL CPT CODE(S): A; 99437, 94170 Professional services performed by [employer] at [facility], [address] [place] [address] [place] [address]. Technical services performed by [employer] at [address] [place] [address], [address], [place] [address]. [facility] [address] [place] [address] PHONE: [phone] DIRECTOR: Junior Machado M.D. * * * END OF REPORT * * *
--- NOTE | 2017-12-25 17:57 | CON ---
[address] [address] CONSULTATION Name: ERA GARCIA Room: [address]#: [id number] Admission: 12/02/17 Attend Phys: Janak Landeros Discharge: 12/11/17 Date of : 43 Report #: [id number] THIS REPORT FOR: //name// CC: Yan Banda DO DATE OF SERVICE: 12/02/2017 REFERRING PHYSICIAN: Darren Banda MD REASON FOR CONSULTATION: Abdominal pain and bowel obstruction. IMPRESSION: 1. Large bowel obstruction noted at the level of the proximal descending colon -- suspect underlying colon cancer, but cannot rule out other causes. 2. Personal history of colon polyps with her last examination being done over 10 years ago. 3. Left upper quadrant pain with worsening constipation and weight loss secondary to #1. 4. Mild anemia. RECOMMENDATIONS: 1. We will attempt a gentle bowel preparation with Dulcolax today and tomorrow and then some soapsuds enemas thereafter. I am afraid to give her too much volume at this time with the bowel prep as I am not convinced that she will be able to empty her colon from the same. 2. We will proceed with colonoscopy under general endotracheal anesthesia and fluoroscopy as it is highly likely that I would want to place a colonic stent if I notice that there is a colonic stricture. This will allow her to have a 1-stage operation after being prepped instead of having a temporary colostomy. Once I place the stent, we can prep the patient over a couple of days before considering surgery. It will usually take the stent maximum of 24-48 hours to completely open and since she has a lot of stool within the proximal colon, it is going to take more than one day to accomplish this goal. I have discussed these impressions and plans with the patient as well as her and they are agreeable to the same. HISTORY OF PRESENT ILLNESS: The patient is a very pleasant 72-year-old white female who was admitted to the hospital with complaints of rather severe upper abdominal pain and obstipation. For the last several days she has not been able to go the bathroom and this is not unusual for her. She does have a tendency towards constipation, but nothing this severe. She has undergone endoscopic studies of her lower GI tract in the past, last of which was about [place] [address] CONSULTATION Name: ERA GARCIA Room: [address]#: [id number] Admission: 12/02/17 Attend Phys: Janak Landeros Discharge: 12/11/17 Date of : 43 Report #: [id number] Her bowels have been a little more sluggish and going once every couple of days. She has not had any black stools, tarry stools or any blood in her stools. She has no known family history of any colon polyps or colon cancer. She was seen through the Emergency Room and had a CT scan, which revealed evidence of dilation of the colon to the level of proximal descending colon with extensive amount of stool noted throughout that segment. There are also pretty focal narrowings of the descending colon as well with adjacent stranding and thickening of uncertain etiology. She is admitted to the hospital for further evaluation and treatment. ALLERGIES: None. MEDICATIONS: At home included lisinopril/hydrochlorothiazide, calcium with vitamin D, hydrocodone, cyclobenzaprine, fish oil, gabapentin, meloxicam, and dicyclomine p.r.n. PAST MEDICAL AND SURGICAL HISTORY: Remarkable for hypertension, some irritable bowel. She has problem with chronic back pain. She has had previous cholecystectomy, tonsillectomy and rotator cuff surgery. SOCIAL HISTORY: The patient is . She does not smoke or drink. FAMILY HISTORY: Negative. PHYSICAL EXAMINATION: GENERAL: Pleasant 72-year-old white female who is awake and alert. CARDIOPULMONARY: Revealed regular rate and rhythm. LUNGS: Clear. ABDOMEN: Soft. She was tender in the left upper quadrant. No rebound or guarding was noted. She does not appear to be massively distended. LABORATORY DATA: Revealed a white count of 10.4, hemoglobin 10.7, platelet count 354,000, MCV is 98.6 and RDW is 12.8. Sodium 136, potassium 3.9, chloride 99, bicarbonate is 27, BUN is 28, creatinine 1.1, her GFR of 49. Total bilirubin 0.4, alkaline phosphatase 89, AST 16, ALT 13. Her albumin is 3.0. Her protime is 10.9 with INR 1.1. DISCUSSION: At the present time, the patient has signs and symptoms to suggest a bowel obstruction. We will proceed with a gentle bowel preparation and proceed with endoscopic evaluation of her lower GI tract tomorrow and make further recommendations thereafter. <ELECTRONICALLY SIGNED> By: Blas Vora DO 12/25/17 1757 41 183Blas Vora DO /nt
--- NOTE | 2018-01-23 10:58 | OP ---
[facility] [address] [place] [address] OPERATIVE REPORT Name: ERA GARCIA Room: [address]#: [id number] Admission: 12/02/17 Attend Phys: Janak Landeros Discharge: 12/11/17 Date of : 43 Report #: [id number] THIS REPORT FOR: //name// CC: Blas Banda DICTATED BY: Jayna Escobar DO DATE OF SERVICE: 12/06/2017 PREOPERATIVE DIAGNOSIS: Colonic obstruction at the level of the splenic flexure. POSTOPERATIVE DIAGNOSIS: Colonic obstruction at the level of the splenic flexure. Frozen section in OR consistent with Crohn's disease. SURGEON: Jayna Escobar, PGY5. SUPERVISING SURGEON: Yan Sherwood DO. ROBOT PROGRAMMER: Iggy Martinez, MS3. PROCEDURE: Exploratory laparotomy with left hemicolectomy, takedown of splenic flexure and colostomy and mucous fistula. ANESTHESIA: General endotracheal. BLOOD LOSS: 75 mL. SPECIMENS: Left colon and splenic flexure with a suture at the distal end. COMPLICATIONS: None. DISPOSITION: PACU to floor. OPERATIVE DETAILS: After obtaining proper informed consent, the patient was brought to the operating room and laid supine on the operating table. She was given preoperative antibiotics and sedated and intubated under the benefit of general anesthesia. She was placed in lithotomy position and perineum and abdomen were prepped and draped in the usual sterile fashion after placement of the Smith catheter. A time-out was performed. An upper midline incision was made superior to the umbilicus and dissection of subcutaneous tissue was carried to the level of the fascia. A nicking incision was made in the fascia and this was grasped and elevated and peritoneum was [place] [address] OPERATIVE REPORT Name: ERA GARCIA Room: [address]#: [id number] Admission: 12/02/17 Attend Phys: Janak Landeros Discharge: 12/11/17 Date of : 43 Report #: [id number] Metzenbaum scissors. Finger was then placed in the abdomen with no evidence of adhesions. Incision was extended inferiorly and superiorly to completely open the fascia for the entire length of our incision. We then turned our attention to the splenic flexure where we could palpate a firm indurated area. We traced back to the transverse colon which was decompressed and quite healthy looking and distal to the descending and sigmoid colon again decompressed and healthy appearing. The splenic flexure was quite adherent to the spleen and gentle blunt dissection under direct visualization was carried out to carefully dissect the colon free from the spleen. The spleen did have an approximately 4 cm area of firm rubbery appearing white spleen. At this area of attachment, we then continued gentle blunt takedown of the splenic flexure. We then came back to the transverse colon and entered the lesser sac and selected our proximal dissection margin. This was ligated with an 80 mm blue load Endo-RADHA stapler. LigaSure Impact was used to inferiorly clamp and ligate the mesentery around the splenic flexure to approximately the mid descending colon where an additional blue load Endo-RADHA stapler was used to ligate our distal margin. There were some areas of induration particularly external to the colon with a focal firm nodule which appeared to be the same site that had been adherent to the spleen. Pathologist came into the room and inspected the specimen with evidence of local inflammatory changes and evidence of ischemic changes as well as cobblestoning to the mucosa consistent with likely Crohn's disease, final pathology pending. We then ran the entire small bowel and inspected the cecum, which did appear grossly normal. Due to the suspicion of Crohn's disease, we elected to place a colostomy with mucous fistula. We elected to place a stoma on the left lateral abdomen and skin was grasped with an Allis clamp and elevated and circumferential excision of the skin was taken care with a 10 blade. A core of subcutaneous fat was then taken down with the use of cautery to the level of the fascia. Cruciate incision was made in the fascia until 2 fingers could easily pass through the fascial defect. We then brought up our end colostomy and mucous fistula through the abdominal wall. We secured these internally to the peritoneum with 0 Prolene suture. Once this was secured, we irrigated the abdominal cavity with warm saline. Fascia of the midline incision was closed with a #1 looped PDS suture and subcutaneous tissues were reapproximated with 3-0 Vicryl and skin was closed with skin brandon. Incision was then covered. We turned our attention back to the stoma and mucous fistula. Four quadrant sutures were placed through the fascia and the serosa and serosa to serosa bites through the opposed edges of the mucous fistula and the end colostomy. Verna sutures were then placed circumferentially with 2-0 Vicryl. Mucocutaneous sutures were placed with 3-0 Vicryl circumferentially with good approximation. Mucosa was reapproximated at the opposed edges with 3-0 Vicryl. A finger was placed both in the end colostomy and the mucous fistula and they were patent. Gloves were then changed and stoma appliance was placed. A midline incision was then cleansed and a sterile dressing was applied. Local infiltration of 0.5% Marcaine was injected throughout the case, totaling 40 mL. All counts were correct at the end of the case. Drapes were removed and the patient was awoken and extubated and brought to PACU [place] [address] OPERATIVE REPORT Name: ERA GARCIA Room: [address]#: [id number] Admission: 12/02/17 Attend Phys: Janak Landeros Discharge: 12/11/17 Date of : 43 Report #: [id number] Yan Sherwood was present and scrubbed for the entirety of the procedure. <ELECTRONICALLY SIGNED> By: Yan Sherwood DO 01/23/18 1058 1214 1422Aheather Sherwood DO /nt
[2018-09-17] MEDS ORDERED: LIORESAL 10 MG10 MG PO (10:17)
[2018-09-17] MEDS ORDERED: KEFLEX250 M1 PO (10:18)
[2018-09-17] MEDS ORDERED: TROSPIUM CHLORI60 MG PO (10:19)
[2018-09-17] MEDS ORDERED: HUMIRA40 MG/0.8 (10:19)
[2018-09-17] MEDS ORDERED: OMEPRAZOLE40 MG PO (10:20)
== END 2017-12-11 13:53 | disposition home health service (06) | DRG 329 ==
LOC: M.ERS 06:03 → M.ORTHSURG 08:50 → M.TBA-ER 08:50 → M.ORTHSURG 09:41
PROVIDERS: Family Medicine; Internal Medicine Gastroenterology; Surgery; ADMIT Internal Medicine
DX: K56.600 Partial intestinal obstruction, unspecified as to cause (principal); K55.039 Acute (reversible) ischemia of large intestine, extent unspecified; K63.3 Ulcer of intestine; E46 Unspecified protein-calorie malnutrition; I47.1 Supraventricular tachycardia; E86.0 Dehydration; I10 Essential (primary) hypertension; D64.9 Anemia, unspecified; G25.81 Restless legs syndrome; G89.29 Other chronic pain; M54.9 Dorsalgia, unspecified; N30.20 Other chronic cystitis without hematuria; K56.41 Fecal impaction; Z68.23 Body mass index [BMI] 23.0-23.9, adult; Z90.49 Acquired absence of other specified parts of digestive tract; Z79.899 Other long term (current) drug therapy; Z88.8 Allergy status to other drugs, medicaments and biological substances; Z82.49 Family history of ischemic heart disease and other diseases of the circulatory system

== ENCOUNTER → 2018-07-26 | Outpatient (CLI) | payer MEDICARE, BC ==
[~2018-07-26] MED LIST changes: +CIPRO500 MG PO; +FISH OIL 1,001000 M2 PO; +FLAGYL500 MG PO; +FLEXERIL PO; +HYDROCODONE-AP1 EAC6 PO; +KEFLEX500 M1 PO; +MIRALAX17 GM PO; +MOBIC7.5 MG PO; +NEURONTIN600 MG PO; +TYLENOL325 MG PO
[2018-07-26 09:04] LABS: ABSOLUTE EOSINOPHILS 0.2 thou/uL (0.0-0.7); ABSOLUTE LYMPHOCYTES 2.2 thou/uL (0.8-5.3); ABSOLUTE MONOCYTES 0.4 thou/uL (0.0-1.2); ABSOLUTE NEUTROPHILS 2.3 thou/uL (1.6-8.1); EOSINOPHILS 4.4 %; HEMATOCRIT 36.9 % (37.0-47.0); HEMOGLOBIN 12.4 gm/dL (12.0-15.0); LYMPHOCYTES 42.3 %; MCH 31.2 pg (26.0-34.0); MCHC 33.6 g/dL (28.0-37.0); MCV 92.7 fL (80.0-100.0); MONOCYTES 7.8 %; MPV 7.4 fl. (7.2-11.1); NUCLEATED RBCS 0 /100WBC; PLATELET COUNT* 167 thou/uL (150-400); POLYS 44.5 %; RBC 3.98 mil/uL (4.20-5.00); RDW-CV 12.7 % (10.5-14.5); WBC 5.1 thou/uL (4.0-11.0)
[2018-07-26 09:14] LABS: CALCIUM 9.1 mg/dL (8.5-10.1); CREATININE 1.1 mg/dL (0.6-1.3); POTASSIUM 3.7 mmol/L (3.5-5.1); TOTAL BILIRUBIN 0.4 mg/dL (<0.1-1.0); TOTAL PROTEIN 8.7 g/dL (6.4-8.2)
[2018-07-26 10:01] LABS: ESR (SEDRATE) 30 mm/hr (0-30)
== END ==
LOC: M.LAB 08:34
PROVIDERS: Internal Medicine Gastroenterology
DX: K50.90 Crohn's disease, unspecified, without complications (principal); I10 Essential (primary) hypertension

== ENCOUNTER → 2018-07-27 | Outpatient (CLI) | payer MEDICARE, BC | LOC: M.CT 07:30 → M.MRI 07:30 → M.CT 08:41 → M.LAB 09:00 → M.CT 11:30 | DX: K50.90 Crohn's disease, unspecified, without complications (principal); K63.89 Other specified diseases of intestine; I10 Essential (primary) hypertension; Z90.49 Acquired absence of other specified parts of digestive tract ==

== ENCOUNTER → 2018-09-05 | Outpatient (CLI) | payer MEDICARE, BC ==
[~2018-09-05] MED LIST changes: +HUMIRA40 MG/0.8; +KEFLEX250 M1 PO; +LIORESAL 10 MG10 MG PO; +OMEPRAZOLE40 MG PO; +TRAMADOL 50 MG50 MG PO; +TROSPIUM CHLORI60 MG PO
== END ==
LOC: M.CT 08:20
DX: J84.10 Pulmonary fibrosis, unspecified (principal); I70.0 Atherosclerosis of aorta

== ENCOUNTER 2018-09-18 05:58 | Inpatient (IN) | payer MEDICARE, BC ==
[~2018-09-18] VITALS: Ht 160 cm; Wt 59.9 kg
--- NOTE | ~2018-09-18 | H ---
[address] [address] HISTORY AND PHYSICAL Name: ERA GARCIA Room: [address]#: [id number] Admission: 09/18/18 Attend Phys: Yan Sherwood DO Discharge: 09/21/18 Date of : 43 Report #: [id number] THIS REPORT FOR: //name// For History and Physical please refer to the handwritten note in the patient's medical record. By: [id number] Records Staff CLIFFORD /PATRICK
[~2018-09-18 05:58] MED LIST changes: -TRAMADOL 50 MG50 MG PO
[2018-09-18 06:30] LABS: HEMATOCRIT 36.4 % (37.0-47.0); HEMOGLOBIN 12.2 gm/dL (12.0-15.0); MCH 30.6 pg (26.0-34.0); MCHC 33.5 g/dL (28.0-37.0); MCV 91.4 fL (80.0-100.0); MPV 7.3 fl. (7.2-11.1); RBC 3.99 mil/uL (4.20-5.00); RDW-CV 12.8 % (10.5-14.5)
[2018-09-18 06:41] LABS: CALCIUM 10.1 mg/dL (8.5-10.1); CREATININE 1.3 mg/dL (0.6-1.3); POTASSIUM 3.5 mmol/L (3.5-5.1)
[2018-09-18 06:46] LABS: ALBUMIN 4.3 g/dL (3.4-5.0); TOTAL BILIRUBIN 0.6 mg/dL (<0.1-1.0)
[2018-09-18 06:55] VITALS: BP 127/63
--- NOTE | 2018-09-18 10:01 | EKG ---
[place] [address] ELECTROCARDIOGRAM REPORT Name: ERA GARCIA Room: [address] .R.#: [id number] Admission: 09/18/18 Attend Phys: Yan Sherwood DO Discharge: Date of : 43 Report #: [id number] THIS REPORT FOR: //name// [facility] Test Date: 2018-09-18 Test Time: 06:41:02 Pat Name: ERA GARCIA Department: Room: [facility] Gender: F Senior User Experience Architect: MIKHAIL : 1945 Requested By: Yan Sherwood Order Number: [id number] Reading MD: Mango Proctor Measurements Intervals [place] Rate: 88 P: 9 [place]: 120 QRS: 67 QRSD: 98 T: 25 QT: 368 QTc: 446 Interpretive Statements Sinus rhythm Compared to ECG 12/08/2017 16:13:56 Sinus tachycardia no longer present T-wave abnormality no longer present Electronically Signed On 09-18-2018 10:00:53 MULTI CARE TECHNICIAN by Mango Proctro [email or web address] <ELECTRONICALLY SIGNED> By: Mango Proctor MD, FACC 09/18/18 1000 [phone] Mango Proctor MD, [facility] /EPI
[2018-09-18 11:00] VITALS: BP 161/62
[2018-09-18 16:00] VITALS: BP 104/53
[2018-09-18 19:45] VITALS: BP 108/55
[2018-09-19 00:24] VITALS: BP 103/46
[2018-09-19 04:40] VITALS: BP 103/51
[2018-09-19 05:37] LABS: CALCIUM 8.3 mg/dL (8.5-10.1); CREATININE 1.6 mg/dL (0.6-1.3); POTASSIUM 4.1 mmol/L (3.5-5.1)
--- NOTE | 2018-09-19 07:53 | OP ---
[address] [address] OPERATIVE REPORT Name: ERA GARCIA Room: [address] IN .R.#: [id number] Admission: 09/18/18 Attend Phys: Yan Sherwood DO Discharge: Date of : 43 Report #: [id number] THIS REPORT FOR: //name// CC: Yan Perez DATE OF SERVICE: 09/18/2018 This is Kranthi Paulino DO, PGY-2 dictating for Yan Sherwood DO. PREOPERATIVE DIAGNOSES: Crohn's disease with splenic flexure mass, status post colostomy, parastomal hernia. POSTOPERATIVE DIAGNOSES: Crohn's disease with splenic flexure mass, status post colostomy, parastomal hernia. SURGEON: Yan Sherwood DO. ASSISTANTS: Kranthi Paulino DO, PGY-[address] Jg Mcgowan DO, PGY-2. OPERATION PERFORMED: Takedown colostomy with reanastomosis and repair of parastomal hernia primarily. ANESTHESIA TYPE: General and local. ESTIMATED BLOOD LOSS: 30. SPECIMEN REMOVED: Colostomy. COMPLICATIONS: None. DISPOSITION: The patient tolerated the procedure well to PACU in stable condition, was admitted to med/surg for observation overnight. INDICATIONS FOR PROCEDURE: The patient is a pleasant 73-year-old female who presents to the office in July for scheduling and planning of colostomy takedown. The patient had history of new onset Crohn's disease in 11/2017, was noted to have a splenic flexure obstruction, was taken for an exploratory laparotomy, lysis of adhesions, splenic flexure takedown and left hemicolectomy. Specimen was found to be inflammatory in nature and the patient was subsequently diagnosed with Crohn's. She has been started on Humira since then with good control of her Crohn's disease. Full discussion of procedure, alternatives, risks and possible complications to include but not limited to bleeding, infection, postoperative pain, scarring, hernia recurrence, need for additional surgery, injury to other abdominal organs and structures, [place] [address] OPERATIVE REPORT Name: ERA GARCIA Room: [address]#: [id number] Admission: 09/18/18 Attend Phys: Yan Sherwood DO Discharge: Date of : 43 Report #: [id number] bowel, anastomotic failure or leak, sepsis, peritonitis, anesthesia risks up to and including cardiopulmonary arrest and even . The patient voiced understanding of these risks and agreed to proceed with surgery. DESCRIPTION OF PROCEDURE: The patient was again seen and examined in the preop holding area. Preoperative antibiotics were given. Fully informed written consent was obtained. Again, full discussion of procedure, alternatives, risks and possible complications. The patient again voiced understanding of risks associated with surgery and agreed to proceed with surgery. The patient was then transported to the operating room suite and placed on the operating room table in the supine position. At this time, Anesthesia induced general endotracheal intubation. A Smith catheter was placed to bilateral lower extremity calf SCDs. Grounding pad was placed to right lateral thigh. All patient extremities and joints were protected using foam padding. The patient was prepped and draped using standard sterile fashion. Prior to onset of procedure, timeout was performed. Of note, the colostomy was closed using a 0 silk pursestring interrupted suture and the same was performed for the mucous fistula. We began by making a vertical elliptical incision around the left-sided colostomy. Using blunt and electrocautery dissection, we dissected circumferentially around the colostomy and mucous fistula through the subcutaneous tissue down to the level of the fascia. The patient had a parastomal hernia seen on CT. Hernia sac was encountered. This was entered and continued to dissect the hernia sac circumferentially around to the fascial edges. Once this was performed and both the end colostomy and mucous fistula were completely free, they were pulled through the incision. At this time, blue towels were brought onto the field to protect from any spillage for the reanastomosis. We began by using a RADHA-75 blue load x 2 to transect the colostomy from the distal limb and the mucous fistula. Once this was performed, the antimesenteric borders were now located and oriented for kchg-so-afns anastomosis. Allis clamps were placed on each corner. These were then clipped using heavy curved Mayos. An additional RADHA-75 blue load was placed through both lumens and the antimesenteric borders were aligned. There was noted to be no other involvement of any other structures near the tips of the stapler and the stapler was in good position. The stapler was fired and removed. Two additional Allis clamps were placed on the open end of the anastomosis. This was inspected noting anastomosis was fully patent and without tension. Next, Allis clamps were placed across the open end and a TA 60 blue load was used to fire and close the anastomosis. After this was performed, two interrupted Vicryl sutures were placed in the crotch of the anastomosis. Next, the anastomosis was placed into the abdomen and we began closing the parastomal hernia and fascial defects primarily using interrupted [id number] 0 Prolene sutures. Once the fascia was performed, irrigation was brought onto the field and the prior colostomy site was irrigated copiously with 500 mL of normal saline. After this was performed, a layered closure was used using 2-0 interrupted Vicryl sutures to close the subcutaneous space and deep dermal layers. [place] were used to close the skin. Abdomen [place] [address] OPERATIVE REPORT Name: ERA GARCIA Room: [address]#: [id number] Admission: 09/18/18 Attend Phys: Yan Sherwood DO Discharge: Date of : 43 Report #: [id number] and dry lap. A Telfa pad, 4 x 4s, ABD and Medipore tape were placed for sterile dressing. Instrument count and sponge count were correct at the end of the case. The patient tolerated the procedure well, was extubated in the OR, transferred to the PACU in stable condition after brief recovery from anesthesia with plans to admit to the med/surg floor for observation and to be started on ERAS protocol. <ELECTRONICALLY SIGNED> By: Karlos Paulino DO 09/19/18 0753 0930 1008Karlos Paulino DO /nt
[2018-09-19 08:22] VITALS: BP 105/51
[2018-09-19 15:40] VITALS: BP 101/63
[2018-09-19 19:30] VITALS: BP 108/51
[2018-09-20] VITALS: BP 113/60
[2018-09-20 03:49] VITALS: BP 101/47
[2018-09-20 04:54] LABS: HEMATOCRIT 25.8 % (37.0-47.0); MCHC 34.6 g/dL (28.0-37.0); MCV 92.5 fL (80.0-100.0); MPV 8.1 fl. (7.2-11.1); RBC 2.79 mil/uL (4.20-5.00); RDW-CV 12.6 % (10.5-14.5)
[2018-09-20 05:01] LABS: HEMOGLOBIN 8.9 gm/dL (12.0-15.0)
[2018-09-20 05:13] LABS: CALCIUM 8.7 mg/dL (8.5-10.1); CREATININE 1.1 mg/dL (0.6-1.3); MAGNESIUM 1.9 mg/dL (1.8-2.4); PHOSPHORUS* 2.1 mg/dL (2.5-4.9); POTASSIUM 4.5 mmol/L (3.5-5.1)
[2018-09-20 08:15] VITALS: BP 116/63
[2018-09-20 16:01] VITALS: BP 133/73
[2018-09-20 20:10] VITALS: BP 134/48
[2018-09-21 05:02] LABS: ABSOLUTE EOSINOPHILS 0.4 thou/uL (0.0-0.7); ABSOLUTE LYMPHOCYTES 1.5 thou/uL (0.8-5.3); ABSOLUTE MONOCYTES 0.5 thou/uL (0.0-1.2); BASOPHILS 0.4 %; EOSINOPHILS 6.1 %; HEMATOCRIT 25.2 % (37.0-47.0); HEMOGLOBIN 8.8 gm/dL (12.0-15.0); LYMPHOCYTES 23.4 %; MCH 32.1 pg (26.0-34.0); MCHC 34.8 g/dL (28.0-37.0); MCV 92.3 fL (80.0-100.0); MONOCYTES 8.2 %; MPV 8.2 fl. (7.2-11.1); NUCLEATED RBCS 0 /100WBC; PLATELET COUNT* 120 thou/uL (150-400); POLYS 61.9 %; RBC 2.74 mil/uL (4.20-5.00); RDW-CV 12.7 % (10.5-14.5); WBC 6.5 thou/uL (4.0-11.0)
[2018-09-21 05:45] LABS: CALCIUM 8.4 mg/dL (8.5-10.1); CREATININE 1.1 mg/dL (0.6-1.3); MAGNESIUM 1.8 mg/dL (1.8-2.4); PHOSPHORUS* 3.5 mg/dL (2.5-4.9); POTASSIUM 4.5 mmol/L (3.5-5.1)
[2018-09-21] MEDS ORDERED: TRAMADOL 50 MG50 MG PO (09:49)
[2018-09-21 09:54] VITALS: BP 133/48
[2018-09-21 10:02] VITALS: BP 112/66
[2018-09-21 10:33] VITALS: BP 133/48
--- NOTE | 2018-09-24 10:05 | PATH ---
[address] [address] PATHOLOGY RPT PROCEDURE Name: ERA GARCIA Room: [address] IN .R.#: [id number] Admission: 09/18/18 Date of : 43 Discharge: 09/21/18 Report #: [id number] Path Case #: [id number] [facility] Accession Number: [id number] . 01 Material submitted: . COLOSTOMY . 01 Clinical history: . Crohn's disease of large intestine with intestinal obstruction . 02 Diagnosis: Colostomy: - Benign colostomy including skin and colonic tissue. (JA:pit 09/21/2018) QTP/09/21/2018 . 02 Electronically signed: . Ketan Bonilla MD, Pathologist NPI- [id number] . 01 Gross description: . The specimen is received in formalin, labeled "Morales Westerly, colostomy". Received is a segment of bowel measuring 5.5 cm in length by 2.5 cm in diameter with a centrally located stoma with exposed light mares mucosa measuring 3.5 x 2.5 cm with surrounding pale mares skin measuring 6.2 x 3.1 cm. Both margins are stapled closed. Opening the specimen reveals light mares mucosa with normal mucosal folding. No distinct nodules or lesions are noted grossly. The specimen is submitted representatively in cassettes A1 and A2. (CAA; 09/19/2018) QAC/QAC . 02 Pathologist provided ICD-10: K50.10 . 02 CPT . 117043 Specimen Comment: A courtesy copy of this report has been sent to Specimen Comment: [phone], . Specimen Comment: Report sent to / DR SALAS Performed at: 01 [facility] [address], [place], [place] [id number] MD Pablito Rachel MD Phone: [phone] Performed at: 02 [facility] [address], [place], [place] [id number] MD Ketan Bonilla MD Phone: [phone]
== END 2018-09-21 10:34 | disposition home or self-care (01) | DRG 330 ==
LOC: M.3W 05:58 → M.TBA 05:58 → M.SUR 07:14 → EDSTATUS 09:18 → M.PRE 09:24 → M.ORTHSURG 09:55 → M.SUR 10:09 → M.3W 09-19 16:11
PROVIDERS: Surgery; ADMIT Surgery
PROC: 0DBL0ZZ Excision of Transverse Colon, Open Approach (ICD-10-PCS; principal; 2018-09-18)
PROC: 0WQF0ZZ Repair Abdominal Wall, Open Approach (ICD-10-PCS; principal; 2018-09-18)
DX: K50.90 Crohn's disease, unspecified, without complications (principal); R71.0 Precipitous drop in hematocrit; K43.5 Parastomal hernia without obstruction or gangrene; Z88.8 Allergy status to other drugs, medicaments and biological substances; Z79.899 Other long term (current) drug therapy; N18.2 Chronic kidney disease, stage 2 (mild)

== ENCOUNTER → 2018-12-25 | Outpatient (CLI) | payer MEDICARE, BC ==
[~2018-12-25] MED LIST changes: +TRAMADOL 50 MG50 MG PO
== END ==
LOC: M.CT 08:51
DX: R59.0 Localized enlarged lymph nodes (principal); R93.89 Abnormal findings on diagnostic imaging of other specified body structures

== ENCOUNTER → 2019-05-14 | Outpatient (CLI) | payer MEDICARE, BC ==
[2019-05-14 14:42] LABS: MCH 29.9 pg (26.0-34.0); RDW-CV 13.3 % (10.5-14.5)
[2019-05-14 14:48] LABS: HEMATOCRIT 36.9 % (37.0-47.0); HEMOGLOBIN 12.4 gm/dL (12.0-15.0); MCHC 33.7 g/dL (28.0-37.0); MCV 88.8 fL (80.0-100.0); MPV 7.5 fl. (7.2-11.1); NUCLEATED RBCS 0 /100WBC; PLATELET COUNT* 168 thou/uL (150-400); RBC 4.16 mil/uL (4.20-5.00); WBC 6.3 thou/uL (4.0-11.0)
[2019-05-14 14:56] LABS: ALBUMIN 3.9 g/dL (3.4-5.0); CALCIUM 9.7 mg/dL (8.5-10.1); POTASSIUM 4.1 mmol/L (3.5-5.1); TOTAL BILIRUBIN 0.4 mg/dL (<0.1-1.0); TOTAL PROTEIN 8.1 g/dL (6.4-8.2)
[2019-05-14 15:21] LABS: CREATININE 1.3 mg/dL (0.6-1.3)
[2019-05-14 15:24] LABS: ABSOLUTE BASOPHILS 0.1 thou/uL (0.0-0.2); ABSOLUTE LYMPHOCYTES 1.4 thou/uL (0.8-5.3); ABSOLUTE MONOCYTES 0.5 thou/uL (0.0-1.2); ABSOLUTE NEUTROPHILS 3.3 thou/uL (1.6-8.1); PLATELET ESTIMATE ADEQUATE
[2019-05-14 15:43] LABS: ESR (SEDRATE) 18 mm/hr (0-30)
== END ==
LOC: M.LAB 14:24
PROVIDERS: Internal Medicine Gastroenterology
DX: K50.90 Crohn's disease, unspecified, without complications (principal)

== ENCOUNTER → 2019-06-06 | Outpatient (CLI) | payer MEDICARE, BC | LOC: M.RAD 06-03 15:51 | DX: Z12.31 Encounter for screening mammogram for malignant neoplasm of breast (principal); M85.80 Other specified disorders of bone density and structure, unspecified site; Z78.0 Asymptomatic menopausal state; Z88.8 Allergy status to other drugs, medicaments and biological substances ==

== ENCOUNTER → 2019-07-10 | Outpatient (CLI) | payer MEDICARE, BC | LOC: M.CT 08:36 | DX: R91.8 Other nonspecific abnormal finding of lung field (principal) ==

== ENCOUNTER → 2020-06-18 | Outpatient (CLI) | payer MEDICARE, BC | LOC: M.RAD 09:38 | PROVIDERS: ATTEND Internal Medicine | DX: Z12.31 Encounter for screening mammogram for malignant neoplasm of breast (principal) ==

== ENCOUNTER → 2020-12-22 | Outpatient (CLI) | payer MEDICARE, BC | LOC: M.CT 07:57 | PROVIDERS: ATTEND Internal Medicine | DX: R91.1 Solitary pulmonary nodule (principal); J98.4 Other disorders of lung; R93.89 Abnormal findings on diagnostic imaging of other specified body structures ==

== ENCOUNTER → 2021-04-19 | Outpatient (CLI) | payer MEDICARE, BC ==
[2021-04-19 11:27] LABS: ABSOLUTE BASOPHILS 0.1 thou/uL (0.0-0.2); ABSOLUTE EOSINOPHILS 0.2 thou/uL (0.0-0.7); ABSOLUTE LYMPHOCYTES 1.8 thou/uL (0.8-5.3); ABSOLUTE MONOCYTES 0.5 thou/uL (0.0-1.2); ABSOLUTE NEUTROPHILS 3.4 thou/uL (1.6-8.1); BASOPHILS 0.9 %; EOSINOPHILS 3.1 %; HEMATOCRIT 33.2 % (37.0-47.0); HEMOGLOBIN 11.3 gm/dL (12.0-15.0); LYMPHOCYTES 30.1 %; MCH 31.3 pg (26.0-34.0); MCHC 34.1 g/dL (28.0-37.0); MCV 91.7 fL (80.0-100.0); MONOCYTES 7.7 %; MPV 7.2 fl. (7.2-11.1); NUCLEATED RBCS 0 /100WBC; PLATELET COUNT* 189 thou/uL (150-400); POLYS 58.2 %; RBC 3.62 mil/uL (4.20-5.00); WBC 5.9 thou/uL (4.0-11.0)
[2021-04-19 11:40] LABS: ALBUMIN 3.8 g/dL (3.4-5.0); CALCIUM 9.7 mg/dL (8.5-10.1); CREATININE 1.2 mg/dL (0.6-1.3); TOTAL BILIRUBIN 0.5 mg/dL (<0.1-1.0); TOTAL PROTEIN 8.6 g/dL (6.4-8.2)
[2021-04-19 12:29] LABS: ESR (SEDRATE) 60 mm/hr (0-30)
[2021-04-20 07:13] LABS: HEPATITIS B SURFACE AG Negative (Negative)
== END ==
LOC: M.LAB 11:01
PROVIDERS: ATTEND Internal Medicine Gastroenterology
DX: K50.90 Crohn's disease, unspecified, without complications (principal)

== ENCOUNTER → 2021-05-12 | Outpatient (CLI) | payer MEDICARE, BC ==
[2021-05-12 11:58] LABS: URINE BILIRUBIN NEGATIVE (Negative); URINE BLOOD NEGATIVE (Negative); URINE CLARITY CLEAR; URINE COLOR YELLOW; URINE GLUCOSE-RANDOM NEGATIVE (Negative); URINE KETONES NEGATIVE (Negative); URINE LEUKOCYTES-REFLEX 1+ (Negative); URINE NITRITE-REFLEX NEGATIVE (Negative); URINE PROTEIN NEGATIVE (Negative); URINE UROBILINOGEN 0.2 E.U./dl (0.2-1.0)
[2021-05-12 11:58] LABS: ABSOLUTE BASOPHILS 0.1 thou/uL (0.0-0.2); ABSOLUTE EOSINOPHILS 0.2 thou/uL (0.0-0.7); ABSOLUTE LYMPHOCYTES 1.7 thou/uL (0.8-5.3); ABSOLUTE MONOCYTES 0.3 thou/uL (0.0-1.2); ABSOLUTE NEUTROPHILS 2.2 thou/uL (1.6-8.1); BASOPHILS 1.1 %; EOSINOPHILS 4.6 %; HEMATOCRIT 32.2 % (37.0-47.0); HEMOGLOBIN 11.1 gm/dL (12.0-15.0); LYMPHOCYTES 38.1 %; MCH 31.5 pg (26.0-34.0); MCHC 34.7 g/dL (28.0-37.0); MONOCYTES 7.6 %; MPV 7.5 fl. (7.2-11.1); NUCLEATED RBCS 0 /100WBC; PLATELET COUNT* 152 thou/uL (150-400); POLYS 48.6 %; RBC 3.53 mil/uL (4.20-5.00); RDW-CV 12.6 % (10.5-14.5); WBC 4.5 thou/uL (4.0-11.0)
[2021-05-12 12:04] LABS: SQUAMOUS 0-3 Few /LPF (0-3); URINE WBC-REFLEX 0-5 Rare /HPF (0-5)
[2021-05-12 12:05] LABS: URINE RBC None Seen /HPF (0-2)
[2021-05-12 12:06] LABS: CRYSTALS None Seen /LPF (None Seen); HYALINE CASTS 0-3 Few /LPF (None Seen); MUCUS None Seen strn/LPF (None Seen)
[2021-05-12 12:10] LABS: CALCIUM 10.1 mg/dL (8.5-10.1); CREATININE 1.2 mg/dL (0.6-1.3); MAGNESIUM 2.1 mg/dL (1.8-2.4); PHOSPHORUS* 3.6 mg/dL (2.5-4.9); POTASSIUM 4.1 mmol/L (3.5-5.1)
[2021-05-12 12:18] LABS: CALCIUM 9.8 mg/dL (8.5-10.1); CREATININE 1.2 mg/dL (0.6-1.3); PHOSPHORUS* 3.7 mg/dL (2.5-4.9)
[2021-05-12 22:07] LABS: IgA 505 mg/dL (64-422); IgG 1693 mg/dL (586-1602); IgM 44 mg/dL (26-217)
[2021-05-13 14:11] LABS: KAPPA FREE LIGHT CHAINS 75.8 mg/L (3.3-19.4); LAMBDA FREE LIGHT CHAINS 44.2 mg/L (5.7-26.3)
[2021-05-13 15:16] LABS: GLOBULIN TOTAL 3.9 g/dL (2.2-3.9); M-SPIKE Not Observed g/dL (Not Observed)
== END ==
LOC: M.LAB 11:13
PROVIDERS: ATTEND Internal Medicine
DX: N18.32 Chronic kidney disease, stage 3b (principal); R77.8 Other specified abnormalities of plasma proteins; Z79.899 Other long term (current) drug therapy

== ENCOUNTER → 2021-05-20 | Outpatient (CLI) | payer MEDICARE, BC | LOC: M.ULTRA 09:15 | PROVIDERS: ATTEND Internal Medicine | DX: N18.32 Chronic kidney disease, stage 3b (principal) ==

== ENCOUNTER → 2021-07-12 | Outpatient (CLI) | payer MEDICARE, BC ==
[2021-07-12 10:43] LABS: ABSOLUTE LYMPHOCYTES 1.9 thou/uL (0.8-5.3); ABSOLUTE MONOCYTES 0.4 thou/uL (0.0-1.2); ABSOLUTE NEUTROPHILS 3.5 thou/uL (1.6-8.1); BASOPHILS 0.7 %; EOSINOPHILS 0.8 %; HEMATOCRIT 35.1 % (37.0-47.0); HEMOGLOBIN 11.7 gm/dL (12.0-15.0); LYMPHOCYTES 32.1 %; MCH 30.1 pg (26.0-34.0); MCHC 33.3 g/dL (28.0-37.0); MCV 90.5 fL (80.0-100.0); NUCLEATED RBCS 0 /100WBC; PLATELET COUNT* 157 thou/uL (150-400); POLYS 59.4 %; RBC 3.88 mil/uL (4.20-5.00); RDW-CV 13.3 % (10.5-14.5); WBC 5.9 thou/uL (4.0-11.0)
[2021-07-12 10:47] LABS: URINE BILIRUBIN NEGATIVE (Negative); URINE BLOOD 1+ (Negative); URINE CLARITY CLEAR; URINE COLOR YELLOW; URINE GLUCOSE-RANDOM NEGATIVE (Negative); URINE KETONES TRACE (Negative); URINE LEUKOCYTES NEGATIVE (Negative); URINE NITRITE NEGATIVE (Negative); URINE PROTEIN TRACE (Negative); URINE SPECIFIC GRAVITY >= 1.030 (1.005-1.030); URINE UROBILINOGEN 0.2 E.U./dl (0.2-1.0)
[2021-07-12 11:00] LABS: CALCIUM 9.4 mg/dL (8.5-10.1); CREATININE 1.2 mg/dL (0.6-1.3); MAGNESIUM 2.2 mg/dL (1.8-2.4); PHOSPHORUS* 3.1 mg/dL (2.5-4.9); POTASSIUM 3.6 mmol/L (3.5-5.1)
[2021-07-12 11:02] LABS: CALCIUM 9.2 mg/dL (8.5-10.1); CREATININE 1.2 mg/dL (0.6-1.3); PHOSPHORUS* 3.1 mg/dL (2.5-4.9)
[2021-07-12 11:04] LABS: BACTERIA 1-9 Few /HPF (None Seen); CASTS None Seen /LPF (None Seen); CRYSTALS None Seen /LPF (None Seen); MUCUS None Seen strn/LPF (None Seen); SQUAMOUS 4-10 Moderate /LPF (0-3); URINE RBC 3-10 Few /HPF (0-2); URINE WBC 0-5 Rare /HPF (0-5)
[2021-07-12 21:06] LABS: IgA 518 mg/dL (64-422); IgG 1749 mg/dL (586-1602); IgM 43 mg/dL (26-217)
== END ==
LOC: M.LAB 10:05
PROVIDERS: ATTEND Internal Medicine
DX: N18.32 Chronic kidney disease, stage 3b (principal)

== ENCOUNTER 2021-10-20 01:16 | Emergency (ER) | payer MEDICARE, BC ==
[~2021-10-20] VITALS: Ht 162.6 cm; Wt 57.1 kg
[2021-10-20 03:20] LABS: URINE BILIRUBIN NEGATIVE (Negative); URINE BLOOD NEGATIVE (Negative); URINE CLARITY CLEAR; URINE COLOR STRAW; URINE GLUCOSE-RANDOM NEGATIVE (Negative); URINE KETONES NEGATIVE (Negative); URINE LEUKOCYTES-REFLEX 1+ (Negative); URINE NITRITE-REFLEX NEGATIVE (Negative); URINE PROTEIN NEGATIVE (Negative); URINE SPECIFIC GRAVITY 1.015 (1.005-1.030); URINE UROBILINOGEN 0.2 E.U./dl (0.2-1.0)
[2021-10-20 03:35] VITALS: BP 160/82
[2021-10-20 03:37] LABS: CASTS None Seen /LPF (None Seen); SQUAMOUS 4-10 Moderate /LPF (0-3)
[2021-10-20 03:39] LABS: BACTERIA-REFLEX 1-9 Few /HPF (None Seen); CRYSTALS None Seen /LPF (None Seen); TRANSITIONAL EPITHEL CELL 0-3 Few /LPF (None Seen); URINE RBC 0-2 Rare /HPF (0-2); URINE WBC-REFLEX 6-15 Few /HPF (0-5)
--- NOTE | 2021-10-20 10:25 | EKG ---
[place] [address] ELECTROCARDIOGRAM REPORT Name: ERA GARCIA Room: [facility]#: [id number] Admission: 10/20/21 Attend Phys: Discharge: 10/20/21 Date of : 43 Date of Service: 10/20/21222 Report #: [id number] THIS REPORT FOR: //name// [facility] ED Test Date: 2021-10-20 Test Time: 02:23:49 Pat Name: ERA GARCIA Department: Room: Gender: F Wiper Blender: ROSALINO : 1945 Requested By: Bernice Oconnell Order Number: [id number] MD: Kevin Love Measurements Intervals [place] Rate: 77 P: -19 NE: 132 QRS: 64 QRSD: 100 T: 49 QT: 397 QTc: 450 Interpretive Statements Sinus rhythm Probable septal infarct, old Compared to ECG 09/18/2018 06:41:02 Myocardial infarct finding now present Electronically Signed On 10-20-2021 10:25:23 STREETCAR REPAIRER HELPER by Kevin Love [email or web address] <ELECTRONICALLY SIGNED> By: Kevin Love MD, FAC 10/20/21 1025 2 2 Kevin Love MD, [facility] /EPI
== END 2021-10-20 03:35 | disposition home or self-care (01) ==
LOC: M.ERS 01:16
PROVIDERS: Emergency Medicine
DX: S01.81XA Laceration without foreign body of other part of head, initial encounter (principal); I10 Essential (primary) hypertension; M19.90 Unspecified osteoarthritis, unspecified site; K21.9 Gastro-esophageal reflux disease without esophagitis; Z79.899 Other long term (current) drug therapy; Z88.8 Allergy status to other drugs, medicaments and biological substances; W22.8XXA Striking against or struck by other objects, initial encounter; Y93.89 Activity, other specified; Y92.89 Other specified places as the place of occurrence of the external cause; Y99.8 Other external cause status

== ENCOUNTER 2021-10-24 09:40 | Emergency (ER) | payer MEDICARE, BC ==
[~2021-10-24] VITALS: Ht 162.6 cm; Wt 54.4 kg
[2021-10-24 10:05] VITALS: BP 133/71
== END 2021-10-24 10:49 | disposition home or self-care (01) ==
LOC: M.ERS 09:40
DX: S01.81XD Laceration without foreign body of other part of head, subsequent encounter (principal); I10 Essential (primary) hypertension; M19.90 Unspecified osteoarthritis, unspecified site; K21.9 Gastro-esophageal reflux disease without esophagitis; Z90.89 Acquired absence of other organs; Z48.02 Encounter for removal of sutures; Z79.899 Other long term (current) drug therapy; Z88.8 Allergy status to other drugs, medicaments and biological substances; X58.XXXD Exposure to other specified factors, subsequent encounter

== ENCOUNTER → 2021-12-14 | Outpatient (CLI) | payer MEDICARE, BC ==
[2021-12-14 09:35] LABS: ABSOLUTE EOSINOPHILS 0.2 thou/uL (0.0-0.7); ABSOLUTE LYMPHOCYTES 1.5 thou/uL (0.8-5.3); ABSOLUTE MONOCYTES 0.3 thou/uL (0.0-1.2); ABSOLUTE NEUTROPHILS 1.5 thou/uL (1.6-8.1); BASOPHILS 0.9 %; EOSINOPHILS 5.6 %; HEMATOCRIT 36.9 % (37.0-47.0); HEMOGLOBIN 12.2 gm/dL (12.0-15.0); LYMPHOCYTES 42.2 %; MCH 31.1 pg (26.0-34.0); MCHC 33.1 g/dL (28.0-37.0); MCV 93.8 fL (80.0-100.0); MONOCYTES 9.2 %; MPV 6.8 fl. (7.2-11.1); NUCLEATED RBCS 0 /100WBC; PLATELET COUNT* 140 thou/uL (150-400); POLYS 42.1 %; RBC 3.93 mil/uL (4.20-5.00); RDW-CV 13.2 % (10.5-14.5); WBC 3.5 thou/uL (4.0-11.0)
[2021-12-14 09:52] LABS: ALBUMIN 3.9 g/dL (3.4-5.0); CALCIUM 9.1 mg/dL (8.5-10.1); CREATININE 1.2 mg/dL (0.6-1.3); MAGNESIUM 2.1 mg/dL (1.8-2.4); PHOSPHORUS* 3.7 mg/dL (2.5-4.9); POTASSIUM 3.7 mmol/L (3.5-5.1); TOTAL BILIRUBIN 0.4 mg/dL (<0.1-1.0)
[2021-12-14 10:39] LABS: ESR (SEDRATE) 15 mm/hr (0-30)
== END ==
LOC: M.LAB 12-13 11:39
PROVIDERS: ATTEND Internal Medicine Gastroenterology
DX: K50.10 Crohn's disease of large intestine without complications (principal); N18.32 Chronic kidney disease, stage 3b